=== PATIENT | female | born 1965 | race Caucasian/White ===

== ENCOUNTER 2017-11-18 18:31 | Emergency (ER) | payer OTHER ==
[~2017-11-18] VITALS: Ht 177.8 cm; Wt 83.9 kg
[~2017-11-18 18:31] MED LIST: AZITHROMYCIN 2250 MG PO; CARISOPRODOL 3350 MG PO; FLUOXETINE HCL20 M1 PO; GABAPENTIN100 MG; OXYCODONE HCL 55 MG PO; ROXICODONE5 M1 PO; SEROQUEL 100 M100 M2; SUBOXONE 2 MG-1 EAC2; VICOPROFEN 2001 EACH PO; VOLTAREN 50MG T50 MG
[2017-11-18] MEDS ORDERED: CIPRODEX OTIC7.5 ML OTIC (19:30)
[2017-11-18] MEDS ORDERED: OXYCODONE HCL 55 MG PO (20:34)
== END 2017-11-18 20:50 | disposition home or self-care (01) ==
LOC: ER 18:31
DX: H72.92 Unspecified perforation of tympanic membrane, left ear (principal); G89.18 Other acute postprocedural pain; Z88.1 Allergy status to other antibiotic agents; Z88.2 Allergy status to sulfonamides; Z87.891 Personal history of nicotine dependence

== ENCOUNTER 2018-09-11 11:33 | Emergency (ER) | payer OTHER ==
[~2018-09-11] VITALS: Ht 175.3 cm; Wt 81.7 kg
[~2018-09-11 11:33] MED LIST changes: +CIPRODEX OTIC7.5 ML OTIC
[2018-09-11] MEDS ORDERED: PREDNISONE 10 M10 MG PO (13:18)
[2018-09-11] MEDS ORDERED: NORFLEX100 MG PO (13:18)
[2018-09-11 13:30] VITALS: BP 165/102
== END 2018-09-11 13:30 | disposition home or self-care (01) ==
LOC: ER 11:33
DX: S39.012A Strain of muscle, fascia and tendon of lower back, initial encounter (principal); G89.29 Other chronic pain; Z87.891 Personal history of nicotine dependence; Z88.2 Allergy status to sulfonamides; Z88.8 Allergy status to other drugs, medicaments and biological substances; X50.0XXA Overexertion from strenuous movement or load, initial encounter; Y93.89 Activity, other specified; Y92.89 Other specified places as the place of occurrence of the external cause; Y99.8 Other external cause status

== ENCOUNTER 2018-11-24 19:02 | Emergency (ER) | payer OTHER ==
[~2018-11-24] VITALS: Ht 175.3 cm; Wt 86.2 kg
[~2018-11-24 19:02] MED LIST changes: +NORFLEX100 MG PO; +PREDNISONE 10 M10 MG PO
[2018-11-24] MEDS ORDERED: NEURONTIN 300300 M1 PO (19:10)
[2018-11-24] MEDS ORDERED: NORCO 5-325 TA1 EAC1 PO (20:03)
[2018-11-24 20:25] VITALS: BP 148/94
== END 2018-11-24 20:20 | disposition home or self-care (01) ==
LOC: ER 19:02
DX: S22.42XA Multiple fractures of ribs, left side, initial encounter for closed fracture (principal); Z90.49 Acquired absence of other specified parts of digestive tract; Z98.890 Other specified postprocedural states; Z88.2 Allergy status to sulfonamides; Z88.6 Allergy status to analgesic agent; Z87.891 Personal history of nicotine dependence; W10.8XXA Fall (on) (from) other stairs and steps, initial encounter; Y93.89 Activity, other specified; Y92.89 Other specified places as the place of occurrence of the external cause; Y99.8 Other external cause status

== ENCOUNTER 2018-12-30 10:12 | Emergency (ER) | payer OTHER ==
[~2018-12-30] VITALS: Ht 175.3 cm; Wt 79.4 kg
[~2018-12-30 10:12] MED LIST changes: +NEURONTIN 300300 M1 PO; +NORCO 5-325 TA1 EAC1 PO
[2018-12-30 10:50] LABS: URINE BILIRUBIN NEGATIVE (Negative); URINE BLOOD TRACE (Negative); URINE CLARITY CLEAR; URINE COLOR YELLOW; URINE GLUCOSE-RANDOM* NEGATIVE (Negative); URINE KETONES NEGATIVE (Negative); URINE LEUKOCYTES-REFLEX NEGATIVE (Negative); URINE NITRITE-REFLEX NEGATIVE (Negative); URINE PROTEIN (DIPSTICK) NEGATIVE (Negative); URINE SPECIFIC GRAVITY 1.015 (1.005-1.035); URINE UROBILINOGEN 0.2 E.U./dl (0.2-1.0)
[2018-12-30] MEDS ORDERED: PREDNISONE 20 M20 MG PO (11:24)
[2018-12-30] MEDS ORDERED: NORFLEX100 MG PO (11:24)
[2018-12-30 11:32] VITALS: BP 139/89
== END 2018-12-30 11:39 | disposition home or self-care (01) ==
LOC: ER 10:12
PROVIDERS: Emergency Medicine
DX: M54.5 Low back pain (principal); Z90.49 Acquired absence of other specified parts of digestive tract; Z98.890 Other specified postprocedural states; Z87.891 Personal history of nicotine dependence; Z88.6 Allergy status to analgesic agent; Z88.2 Allergy status to sulfonamides

== ENCOUNTER 2019-05-19 16:56 | Emergency (ER) | payer OTHER ==
[~2019-05-19] VITALS: Ht 175.3 cm; Wt 80.7 kg
[~2019-05-19 16:56] MED LIST changes: +PREDNISONE 20 M20 MG PO
[2019-05-19] MEDS ORDERED: NORCO 5-325 TA1 EAC1 PO (18:29)
[2019-05-19 18:31] VITALS: BP 178/107
== END 2019-05-19 18:33 | disposition home or self-care (01) ==
LOC: ER 16:56
DX: M25.462 Effusion, left knee (principal); Z88.2 Allergy status to sulfonamides; Z87.891 Personal history of nicotine dependence

== ENCOUNTER 2019-05-22 12:03 | Emergency (ER) | payer OTHER ==
[~2019-05-22] VITALS: Ht 172.7 cm; Wt 125.2 kg
[2019-05-22] MEDS ORDERED: MOBIC15 MG PO (13:02)
[2019-05-22] MEDS ORDERED: NORCO 5-325 TA1 EAC1 PO (13:39)
[2019-05-22 13:42] VITALS: BP 164/71
== END 2019-05-22 13:44 | disposition home or self-care (01) ==
LOC: ER 12:03
DX: M25.562 Pain in left knee (principal); Z90.49 Acquired absence of other specified parts of digestive tract; Z98.890 Other specified postprocedural states; Z87.891 Personal history of nicotine dependence; Z88.2 Allergy status to sulfonamides